=== PATIENT | male | born 2005 | race Caucasian/White ===

== ENCOUNTER 2025-01-16 19:16 | Emergency (ER) | payer BC ==
[2025-01-16 19:33] VITALS: RESP 18; TEMP 97; O2SAT 99
--- NOTE | 2025-01-16 19:54 | ERPHSYRPT ---
- History of Present Illness Time Seen by Provider: 01/16/25 19:49 Source: patient Exam Limitations: no limitations Patient Subjective Stated Complaint: pt states that he fell and hurt his wrist Triage Nursing Assessment: pt ambulated into the er with service dog at side; pt is axo x4; c/o rt wrist injury; pt states 3/10 pain to rt wrist; strong rt radial pulse; decreased ROM to digits 4 and 5; no bruising or swelling present to rt wrist and hand; skin PDW; no respiratory distress present; vitals wnl Physician History: 19-year-old male no significant past medical history presents to our ED for evaluation of pain to his right hand and right wrist. Patient states he fell onto the ground injuring his right hand and right wrist. Injury occurred prior to arrival. Patient complains of pain at the dorsum of the hand and wrist. Pain minimum at rest. Pain worse with movement and palpation. Patient has not taken and declines pain medication. No other injuries reported. No BHT or LOC. No neck pain. Cervical spine cleared clinically. No elbow shoulder or back pain. Patient's mother is at the bedside. They voiced no other complaints or concerns at this time. Portions of this note were created with voice recognition technology. There may be grammatical, spelling, punctuation or sound alike errors Occurred: just prior to arrival Method of Injury: fell Quality: constant Severity of Pain-Max: moderate Severity of Pain-Current: mild Extremities Pain Location: wrist: right Modifying Factors: Improves With: nothing Associated Symptoms: none Allergies/Adverse Reactions: No Known Drug Allergies Allergy (Unverified 01/16/25 19:23) Home Medications: Venlafaxine HCl [Venlafaxine HCl ER] 150 mg PO DAILY 01/16/25 [History] Hx Tetanus, Diphtheria Vaccination/Date Given: Yes Hx Influenza Vaccination/Date Given: No Hx Pneumococcal Vaccination/Date Given: No Travel Risk - International Travel Have you traveled outside of the country in past 3 weeks: No - Emerging Infectious Disease Are you exhibiting symptoms associated with any current EIDs: No - Review of Systems All Other Systems: Reviewed and Negative - Past Medical History Pertinent Past Medical History: Yes Psycho-Social History: Anxiety, Depression, Other Other Medical History: autism - Past Surgical History Past Surgical History: No - Social History Smoking Status: Never smoker Exposure to second hand smoke: No Drug Use: none - Social Determinants of Health Will the patient participate in the screening: Yes Do you worry about a steady place to live?: No Do you have any problems with any of the following?: No known problems In the past 12 months,have you had to go without utilities?: No Transportation Issues: No Has anyone in your support network made you feel unsafe?: No Have you or anyone in your house had to go w/o enough food: No - Nursing Vital Signs Nursing Vital Signs: Initial Vital Signs Pulse Rate 78 01/16/25 19:23 Blood Pressure 118/70 01/16/25 19:23 O2 Sat by Pulse Oximetry 98 01/16/25 19:23 Pain Scale Pain Intensity 3 - Physical Exam General Appearance: alert Neck Exam: normal inspection, full range of motion Cardiovascular/Respiratory Exam: no respiratory distress Abdominal Exam: No guarding Back Exam: normal inspection, normal range of motion, No vertebral tenderness Shoulder Exam: normal inspection, non-tender, no evidence of injury, normal ROM Elbow/Forearm Exam: normal inspection, non-tender, no evidence of injury, normal ROM Wrist Exam: soft tissue tenderness Hand Exam: soft tissue tenderness Neuro/Tendon Exam: normal sensation, normal motor functions Mental Status Exam: alert, oriented x 3, cooperative Skin Exam: normal color, warm, dry SpO2 Interpretation: normal SpO2: 99 O2 Delivery: Room Air - Course Nursing assessment & vital signs reviewed: Yes - Radiology Exams Hand X-ray Interpretation: Interpreted by me (No fracture or dislocations) Wrist X-ray Interpretation: Interpreted by me (No fracture dislocations) Ordered Tests: Active Orders 24 hr Category Date Time Status HAND (MINIMUM 3 VIEWS) Stat Exams 01/16/25 19:27 Taken WRIST (MIN 3 VIEWS) Stat Exams 01/16/25 19:27 Taken - Progress Progress: improved Progress Note: 19-year-old male no significant past medical history presents to our ED for evaluation of pain to his right hand and right wrist. Patient states he fell onto the ground injuring his right hand and right wrist. Physical exam reveals some soft tissue tenderness at the dorsum of the right wrist and right hand. Overlying soft tissue intact. No open or draining lesions. Involved extremities neurovasc intact distally compartments are soft cap refill less than 2 seconds. Patient declined pain medication. X-ray negative for fracture or dislocation. Patient placed in a wrist cock-up splint for comfort. Patient declined pain medication. Patient referred to orthopedic clinic for follow-up. Mother at bedside. Patient/mother voiced no other complaints or concerns at this time. They agree to follow-up with the orthopedic clinic tomorrow as discussed. Portions of this note were created with voice recognition technology. There may be grammatical, spelling, punctuation or sound alike errors History obtained from patient and mother who is at the bedside. Differential diagnosis includes fracture of the hand/wrist. Ligamentous injury, muscle strain, contusion Dr. Hou independently reviewed and interpreted the x-ray of the wrist and the hand. No fracture or dislocation observed. However this is a preliminary read. Formal read pending. Family informed that formal read will occur tomorrow and if there are any discrepancies they will be notified. Complexity of problems addressed is moderate acute complicated. No critical care time. Complex of data reviewed and analyzed is moderate. Test ordered test reviewed results analyzed and correlated clinically with history and physical exam. Risk of complication and or risk of morbidity/mortality of patient management is low. Patient received a right wrist cock-up splint for comfort. Vitals are stable. Time spent to discharge patient approximately 15 minutes. Plan of care established for shared decision making. No social determinants of health present to impede follow-up. Portions of this note were created with voice recognition technology. There may be grammatical, spelling, punctuation or sound alike errors 01/16/25 19:56 Counseled pt/family regarding: diagnosis, need for follow-up, rad results - Departure Departure Disposition: Home Clinical Impression: Wrist sprain, Hand pain, right, Hand contusion Condition: Stable Critical Care Time: No Additional Instructions: [facility] tomorrow morning between the hours of 8 and 10 AM. Discharge/Care Plan PAMELA FLYNN was seen on 01/16/25 in the Emergency Room. The patient was counseled regarding Diagnosis,Lab results, Imaging studies, need for follow up and when to return to the Emergency Room. Prescriptions given: Discharge Note I have spoken with the patient and/or caregivers. I have explained the patient's condition, diagnosis and treatment plan based on the information available to me at this time. I have answered the patient's and/or caregiver's questions and addressed any concerns. The patient and/or caregivers have as good understanding of the patient's diagnosis, condition and treatment plan as can be expected at this point. The vital signs have been stable. The patient's condition is stable and appropriate for discharge from the emergency department. The patient will pursue further outpatient evaluation with the primary care physician or other designated or consulting physician as outlined in the discharge instructions. The patient and/or caregivers are agreeable to this plan of care and follow-up instructions have been explained in detail. The patient and/or caregivers have received these instruction. The patient/and or caregivers are aware that any significant change in condition or worsening of symptoms should prompt an immediate return to this or the closest emergency department or call 911. Outpatient Orders: Ortho Referral Time Frame: 1 Day, Facility: [facility]. Hosp, Location: [facility]
[2025-01-16 20:13] VITALS: BP 141/73; PULSE 73
--- NOTE | 2025-01-17 08:53 | XRAY ---
Indication: Pain following fall. Comparison: None 3 view right hand obtained. No bony, articular, or soft tissue abnormalities.
--- NOTE | 2025-01-17 08:53 | XRAY ---
Indication: Pain following fall. Comparison: None 3 view right wrist obtained. No bony, articular, or soft tissue abnormalities.
== END 2025-01-16 20:08 | disposition home or self-care (01) ==
LOC: ED 19:16
DX: S63.501A Unspecified sprain of right wrist, initial encounter (principal); S60.221A Contusion of right hand, initial encounter; W18.30XA Fall on same level, unspecified, initial encounter; M25.541 Pain in joints of right hand; Z79.899 Other long term (current) drug therapy